=== PATIENT | male | born 2000 | race Caucasian/White ===

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

== ENCOUNTER 2019-02-08 20:09 | Emergency (ER) | payer MEDICAID ==
--- NOTE | 2019-02-08 20:29 | ED Physician Chart ---
ED Chief Complaint/HPI - Patient Information Date Seen:: 02/08/19 Time Seen:: 20:25 Chief Complaint:: lip trauma History of Present Illness:: 18 yr old male who was playing football and bumped his lower lip with pain swelling no open cuts only bruising on middle of inside lower lip Allergies:: Allergies Allergy/AdvReac Type Severity Reaction Status Date / Time No Known Allergies Allergy Verified 02/01/18 21:09 Vitals:: Vital Signs - 8 hr 02/08/19 20:22 Temp 98.6 F HR 67 RR 16 BP 135/79 O2 Sat % 99 ED Review of Systems - Review of Systems General/Constitutional: No fever, No chills, No weight loss, No weakness, No diaphoresis, No edema, No loss of appetite Skin: Bruising Head: No headache, No light-headedness Eyes: No loss of vision, No pain, No diplopia ENT: No earache, No nasal drainage, No sore throat, No tinnitus Neck: No neck pain, No swelling, No thyromegaly, No stiffness, No mass noted Cardio Vascular: No chest pain, No palpitations, No PND, No orthopnea, No edema Pulmonary: No SOB, No cough, No sputum, No wheezing GI: No nausea, No vomiting, No diarrhea, No pain, No melena, No hematochezia, No constipation, No hematemesis G/U: No dysuria, No frequency, No hematuria Musculoskeletal: No bone or joint pain, No back pain, No muscle pain Endocrine: No polyuria, No polydipsia Psychiatric: No prior psych history, No depression, No anxiety, No suicidal ideation Hematopoietic: No bruising, No lymphadenopathy Allergic/Immuno: No urticaria, No angioedema Neurological: No syncope, No focal symptoms, No weakness, No paresthesia, No headache, No seizure, No dizziness, No confusion, No vertigo ED Past Medical History - Past Medical History Past Medical History: No significant medical hx Family Medical History - Family Member Father History Unknown: Yes Ethnicity: Living Status: Still Living Hx Family Hypertension: Yes ED Physical Exam - Physical Examination General/Constitutional: Awake Head: Atraumatic Eyes: Lids, conjuctiva normal Other Skin comments:: bruising mid lower lip ENMT: External ears, nose nl Neck: Nontender Respiratory: Nl effort/Exclusion Cardio Vascular: RRR GI: No tenderness/rebounding/guarding Extremities: No tenderness or effusion Neuro/Psych: Alert/oriented ED Septic Shock - . Is Septic Shock (SBP<90, OR Lactate>4 mmol\L) present?: No - <6hrs of presentation: Vital Signs: Vital Signs - 8 hr 02/08/19 20:22 Temp 98.6 F HR 67 RR 16 BP 135/79 O2 Sat % 99 ED Reassessment (Disposition) - Reassessment Reassessment:: lip contusion - Diagnosis Diagnosis:: as above - Aftercare/Follow up Instructions Aftercare/Follow-Up Instructions:: Counseled pt regarding lab results/diagnosis & need follow up - Patient Disposition Discharge/Transfer:: Home Condition at Disposition:: Stable
== END 2019-02-08 20:33 | disposition home or self-care (01) ==
LOC: ER 20:09
DX: S00.531A Contusion of lip, initial encounter (principal); W21.01XA Struck by football, initial encounter; Y93.61 Activity, american tackle football; Y92.321 Football field as the place of occurrence of the external cause; Y99.8 Other external cause status
CPT/HCPCS: Z7502